=== PATIENT | male | born 1970 | race Caucasian/White ===

== ENCOUNTER 2019-06-29 14:26 | Emergency (ER) | payer OTHER ==
--- NOTE | 2019-06-29 14:36 | EDM.PDOC ---
ED HPI GENERAL MEDICAL PROBLEM - General Chief Complaint: Lower Extremity Injury/Pain Stated Complaint: EMS ARRIVAL Time Seen by Provider: 06/29/19 14:34 Source of Information: Reports: Patient History Limitations: Reports: No Limitations - History of Present Illness INITIAL COMMENTS - FREE TEXT/NARRATIVE: HISTORY AND PHYSICAL: History of present illness: Patient is a 49 year old male who presents to the ED with c/o right left pain. Patient states he was standing on his running board of his pick-up truck with his "leg gave out" causing him to fall to the ground. He has a history of 12 previous fractures/surgeries involving his right femur (dating back to 1998). He states his very last surgery, "they took all the hardware out". He is concerned he re-fractured his femur. He denies hitting his head or having any LOC. Patient denies any fever, chills, headache, change in vision, syncope or near syncope. Denies any chest pain, back pain, shortness of breath or cough. Denies any abdominal pain, nausea, vomiting, diarrhea, constipation or dysuria. Has not noted any blood in urine or stool. Patient has been eating and drinking appropriately. Review of systems: As per history of present illness and below otherwise all systems reviewed and negative. Past medical history: As per history of present illness and as reviewed below otherwise noncontributory. Surgical history: As per history of present illness and as reviewed below otherwise noncontributory. Social history: See social history for further information Family history: As per history of present illness and as reviewed below otherwise noncontributory. Physical exam: General: Well developed and well nourished 49 year old male. A&O x 3. Nontoxic appearing and in no acute distress. VSS. HEENT: Atraumatic, normocephalic, pupils equal and reactive bilaterally, negative for conjunctival pallor or scleral icterus, mucous membranes moist, TMs normal bilaterally, throat clear, neck supple, nontender, trachea midline. No drooling or trismus noted. No meningeal signs. No hot potato voice noted. Lungs: Clear to auscultation, breath sounds equal bilaterally, chest nontender. Heart: S1S2, regular rate and rhythm without overt murmur Abdomen: Soft, nondistended, nontender. Negative for masses or hepatosplenomegaly. Negative for costovertebral tenderness. Pelvis: Stable nontender. Skin: Healed scars to right thigh. Otherwise skin is intact, warm, dry. No lesions or rashes noted. Extremities: Pain to right lateral thigh from patella to hip, SEE SKIN. He moves all extremities per self without difficulty or deficits, negative for cords or calf pain. +CMS. Strong pedal pulses bilaterally. Neurovascular unremarkable. Neuro: Awake, alert, oriented. Cranial nerves II through XII unremarkable. Cerebellum unremarkable. Motor and sensory unremarkable throughout. Exam nonfocal. Notes: X-ray shows a transverse acute/subacute femur fracture. 1530: Dr Vázquez was consulted on this case, he is currently in surgery, would like this patient held in the ED until he is able to see patient. 1630: Dr Vázquez is here with patient. Would like him transferred to [facility]. Diagnostics: Pelvis, X-ray right femur Therapeutics: Tara Patterson LR Impression: Femur Fracture, Right Fall Plan: Transferred to [facility] per Dr Vázquez Definitive disposition and diagnosis as appropriate pending reevaluation and review of above. Onset: Today Right Thigh Pain Score (Numeric/FACES): 2 - Related Data Allergies Allergy/AdvReac Type Severity Reaction Status Date / Time morphine Allergy Hallucinati Verified 06/29/19 14:30 ons Home Meds: Home Meds Gemfibrozil 600 mg PO BID 06/29/19 [History] Lisinopril 20 mg PO DAILY 06/29/19 [History] Zonisamide 50 mg PO BEDTIME 06/29/19 [History] atorvaSTATin [Lipitor] 10 mg PO DAILY 06/29/19 [History] busPIRone HCl [Buspirone HCl] 30 mg PO BID 06/29/19 [History] Review of Systems - Review of Systems Review Of Systems: Comprehensive ROS is negative, except as noted in HPI. ED EXAM, GENERAL - Physical Exam Exam: See Below (See dictation) Course - Vital Signs Last Recorded V/S: Last Vital Signs Temp 97.5 F 06/29/19 14:33 Pulse 100 06/29/19 14:33 Resp 20 06/29/19 14:33 BP 179/111 H 06/29/19 14:42 Pulse Ox 99 06/29/19 14:33 - Orders/Labs/Meds Orders: Active Orders 24 hr Category Date Time Status Lactated Ringers [Ringers, Lactated] 1,000 ml Med 06/29/19 14:45 Active IV ASDIRECTED Medication Orders Lactated Ringer's (Ringers, Lactated) 1,000 mls @ 150 mls/hr IV ASDIRECTED KANDICE Last Admin: 06/29/19 14:49 Dose: 150 mls/hr Meds: Medications Generic Name Dose Route Start Last Admin Trade Name Freq PRN Reason Stop Dose Admin Lactated Ringer's 1,000 mls @ 150 mls/hr 06/29/19 14:45 06/29/19 14:49 Ringers, Lactated IV 150 mls/hr ASDIRECTED KANDICE Administration Discontinued Medications Generic Name Dose Route Start Last Admin Trade Name Freq PRN Reason Stop Dose Admin Hydromorphone HCl 1 mg 06/29/19 14:39 06/29/19 14:49 Dilaudid IVPUSH 06/29/19 14:40 1 mg ONETIME ONE Administration Ondansetron HCl 4 mg 06/29/19 14:39 06/29/19 14:49 Zofran IVPUSH 06/29/19 14:40 4 mg ONETIME ONE Administration Departure - Departure Time of Disposition: 16:30 Disposition: Home, Self-Care 01 Clinical Impression: Femur fracture, right Qualifiers: Encounter type: initial encounter Femur location: shaft Fracture type: closed Fracture morphology: transverse Fracture alignment: nondisplaced Qualified Code( s): S72.324A - Nondisplaced transverse fracture of shaft of right femur, initial encounter for closed fracture Fall Qualifiers: Encounter type: initial encounter Qualified Code(s): W19.XXXA - Unspecified fall, initial encounter - Discharge Information Referrals: PCP,Unobtain [Primary Care Provider] - Forms: ED Department Discharge Sepsis Event Note - Focused Exam Vital Signs: Vital Signs Temp Pulse Resp BP Pulse Ox 06/29/19 14:42 179/111 H 06/29/19 14:33 97.5 F 100 20 99 Date Exam was Performed: 06/29/19 Time Exam was Performed: 16:35 - My Orders Last 24 Hours: My Active Orders 06/29/19 14:45 Lactated Ringers [Ringers, Lactated] 1,000 ml IV ASDIRECTED - Assessment/Plan Last 24 Hours: My Active Orders 06/29/19 14:45 Lactated Ringers [Ringers, Lactated] 1,000 ml IV ASDIRECTED
[2019-06-29] MEDS: HYDROmorphone 2 MG/ML Syringe IVPUSH ONE (14:49)
[2019-06-29] MEDS: Ondansetron 4 MG/2 ML SDV IVPUSH ONE (14:49)
[2019-06-29] MEDS: Lactated Ringers 1,000 ML IV SCH (14:49)
--- NOTE | 2019-06-29 16:10 | CR ---
Indication: Injury and pain Technique: Pelvis AP 1 views Comparison: None Findings/Impression: Bones: Chronic fracture deformity is present in the proximal right femur. No acute fracture and no malalignment. Joint spaces: No significant degenerative changes. Soft tissues: Unremarkable. Dictated by Dank Gonzalez MD @ Jun 29 2019 4:04PM Signed by Dr. Dank Gonzalez @ Jun 29 2019 4:09PM
--- NOTE | 2019-06-29 16:10 | CR ---
Indication: Injury and pain Technique: Right femur 4 views Comparison: None Findings/Impression: Bones: Transverse nondisplaced fracture is present in the mid shaft of the right femur, this appears acute or subacute. No other acute fracture evident. Chronic fracture deformities are present. Bone alignment is normal. Multiple surgical wires are present. Joint spaces: Unremarkable. Soft tissues: Unremarkable. Dictated by Dank Gonzalez MD @ Jun 29 2019 4:03PM Signed by Dr. Dank Gonzalez @ Jun 29 2019 4:08PM
[2019-06-29] MEDS: HYDROmorphone 1 MG/ML Syringe IVPUSH ONE (17:13)
--- NOTE | 2019-06-29 17:18 | PCM.SN ---
- Free Text/Narrative Note: Ortho Note Asked to se 49 yo male with right femoral shaft fracture Patient has had 12 previous surgeries on his right femur Abnormal femoral anatomy Called [facility] in [place] for transfer because of fracture complexity with 12 previous surgeries Accept[address] by Dr. Salguero (Hospitalist) for transfer ER arranging transport
[2019-06-29] MEDS: HYDROmorphone 1 MG/ML Syringe ONE (18:37)
== END 2019-06-29 18:55 ==
LOC: MW.ED 14:26
DX: S72.324A Nondisplaced transverse fracture of shaft of right femur, initial encounter for closed fracture (principal); Z88.5 Allergy status to narcotic agent; Z79.899 Other long term (current) drug therapy; W18.31XA Fall on same level due to stepping on an object, initial encounter; Y92.812 Truck as the place of occurrence of the external cause
CPT/HCPCS: 72170; 73552; 96361; 96374; 96375; 96376; 99285; J1170; J2405; J7120; 99284

== ENCOUNTER 2019-07-10 16:59 | Emergency (ER) | payer OTHER ==
--- NOTE | 2019-07-10 17:39 | EDM.PDOC ---
ED HPI GENERAL MEDICAL PROBLEM - General Chief Complaint: Lower Extremity Injury/Pain Stated Complaint: NON STOP BLEEDING OF WOUND Time Seen by Provider: 07/10/19 17:37 Source of Information: Reports: Patient History Limitations: Reports: No Limitations - History of Present Illness INITIAL COMMENTS - FREE TEXT/NARRATIVE: HISTORY AND PHYSICAL: History of present illness: Patient is a 49-year-old male presents to the ED with complaint of bleeding incision. Patient had surgery on his right femur 2 weeks ago. He states this morning he started having bleeding at the incision site. Patient states he has changed the dressing 3 times today. He is on anticoagulants. He denies fevers, chills, purulent drainage. He has no other complaints at this time. He has follow up with primary care provider in 2 weeks. Review of systems: As per history of present illness and below otherwise all systems reviewed and negative. Past medical history: As per history of present illness and as reviewed below otherwise noncontributory. Surgical history: As per history of present illness and as reviewed below otherwise noncontributory. Social history: No reported history of drug or alcohol abuse. Family history: As per history of present illness and as reviewed below otherwise noncontributory. Physical exam: General: Patient sitting comfortably in no acute distress and nontoxic appearing HEENT: Atraumatic, normocephalic, pupils reactive, negative for conjunctival pallor or scleral icterus, mucous membranes moist, throat clear, neck supple, nontender, trachea midline. No meningeal signs. Lungs: Clear to auscultation, breath sounds equal bilaterally, chest nontender. Heart: S1S2, regular, negative for clicks, rubs, or overt murmur. Abdomen: Soft, nondistended, nontender. Negative for masses or hepatosplenomegaly. Negative for costovertebral tenderness. No rigidity, rebound , guarding. Pelvis: Stable nontender. Genitourinary: Deferred. Rectal: Deferred. Extremities: Incision to the right medial thigh and hip well healing with sunil in place. There is no erythema, warmth, purulent drainage. There is evidence of recent bleeding to the bottom portion of the incision. Atraumatic, negative for cords or calf pain. Neurovascular unremarkable. Neuro: Awake, alert, oriented. Cranial nerves II through XII unremarkable. Cerebellum unremarkable. Motor and sensory unremarkable throughout. Exam nonfocal. Notes: Diagnostics: none Therapeutics: none Prescriptions: none Impression: Wound check Definitive disposition and diagnosis as appropriate pending reevaluation and review of above. Right Leg Pain Score (Numeric/FACES): 7 - Related Data Allergies Allergy/AdvReac Type Severity Reaction Status Date / Time acetaminophen [From Vicodin] Allergy Agitation Verified 07/10/19 17:14 hydrocodone [From Vicodin] Allergy Agitation Verified 07/10/19 17:14 morphine Allergy Hallucinati Verified 07/10/19 17:14 ons Home Meds: Home Meds Gemfibrozil 600 mg PO BID 06/29/19 [History] Zonisamide 50 mg PO BEDTIME 06/29/19 [History] atorvaSTATin [Lipitor] 10 mg PO DAILY 06/29/19 [History] busPIRone HCl [Buspirone HCl] 30 mg PO BID 06/29/19 [History] lisinopriL [Lisinopril] 20 mg PO DAILY 06/29/19 [History] Past Medical History Cardiovascular History: Reports: Hypertension - Infectious Disease History Infectious Disease History: Reports: Chicken Pox, Measles, Mumps - Past Surgical History HEENT Surgical History: Reports: Tonsillectomy Neurological Surgical History: Reports: Other (See Below) Other Neurological Surgeries/Procedures: dropped 30ft as an has head skull and brain surgery Musculoskeletal Surgical History: Reports: Other (See Below) Other Musculoskeletal Surgeries/Procedures:: femur surgery x12. ganglion cyst left wrist Dermatological Surgical History: Reports: Skin Graft Social & Family History - Family History Family Medical History: Noncontributory - Caffeine Use Caffeine Use: Reports: Coffee, Energy Drinks, Soda, Tea - Recreational Drug Use Recreational Drug Use: No Review of Systems - Review of Systems Review Of Systems: Comprehensive ROS is negative, except as noted in HPI. ED EXAM, GENERAL - Physical Exam Exam: See Below (see dictation) Course - Vital Signs Last Recorded V/S: Last Vital Signs Temp 97.4 F 07/10/19 17:17 Pulse 93 07/10/19 17:17 Resp 17 07/10/19 17:17 BP 116/81 07/10/19 17:17 Pulse Ox 98 07/10/19 17:17 Departure - Departure Time of Disposition: 17:38 Disposition: Home, Self-Care 01 Condition: Good Clinical Impression: Encounter for wound re-check - Discharge Information Instructions: Wound Care, Adult Referrals: PCP,None [Primary Care Provider] - Forms: ED Department Discharge Additional Instructions: The following information is given to patients seen in the emergency department who are being discharged to home. This information is to outline your options for follow-up care. We provide all patients seen in our emergency department with a follow-up referral. The need for follow-up, as well as the timing and circumstances, are variable depending upon the specifics of your emergency department visit. If you don't have a primary care physician on staff, we will provide you with a referral. We always advise you to contact your personal physician following an emergency department visit to inform them of the circumstance of the visit and for follow-up with them and/or the need for any referrals to a consulting specialist. The emergency department will also refer you to a specialist when appropriate. This referral assures that you have the opportunity for follow-up care with a specialist. All of these measure are taken in an effort to provide you with optimal care, which includes your follow-up. Under all circumstances we always encourage you to contact your private physician who remains a resource for coordinating your care. When calling for follow-up care, please make the office aware that this follow-up is from your recent emergency room visit. If for any reason you are refused follow-up, please contact the [facility] Emergency Department at and asked to speak to the emergency department charge nurse. [facility] [address] [place] [id number] [id number] Follow up with primary care provider and orthopedics Return to ED as needed as discussed Sepsis Event Note - Evaluation Sepsis Screening Result: No Definite Risk - Focused Exam Vital Signs: Vital Signs Temp Pulse Resp BP Pulse Ox 07/10/19 17:17 97.4 F 93 17 116/81 98 Date Exam was Performed: 07/10/19 Time Exam was Performed: 17:58
== END 2019-07-10 18:03 | disposition home or self-care (01) ==
LOC: MW.ED 16:59
DX: Z47.89 Encounter for other orthopedic aftercare (principal); I10 Essential (primary) hypertension; Z88.8 Allergy status to other drugs, medicaments and biological substances; Z88.5 Allergy status to narcotic agent; Z79.899 Other long term (current) drug therapy; Z79.01 Long term (current) use of anticoagulants
CPT/HCPCS: 99282

== ENCOUNTER 2020-10-15 12:33 | Emergency (ER) | payer BC ==
--- NOTE | 2020-10-15 13:14 | EDM.PDOC ---
ED HPI GENERAL MEDICAL PROBLEM - General Chief Complaint: Lower Extremity Injury/Pain Stated Complaint: fell on right leg post surgery Time Seen by Provider: 10/15/20 13:00 - History of Present Illness INITIAL COMMENTS - FREE TEXT/NARRATIVE: 50-year-old male history of hypertension presents after a fall. Patient is supposed to be nonweightbearing on his right lower extremity after having surgery in his right hip that involved bone graft from his right fibula. Last night towards the bottom of the stairs he slipped and fell tumbling down the stairs. He presents now with recurrent right hip pain as well as pain in the right lateral knee fibula. No bleeding or wound dehiscence reported pain in the fibular area worsens with eversion of the right ankle. right knee to toes Pain Score (Numeric/FACES): 3 - Related Data Allergies Allergy/AdvReac Type Severity Reaction Status Date / Time acetaminophen [From Vicodin] Allergy Agitation Verified 10/15/20 13:07 hydrocodone [From Vicodin] Allergy Agitation Verified 10/15/20 13:07 morphine Allergy Hallucinati Verified 10/15/20 13:07 ons Home Meds: Home Meds Zonisamide 50 mg PO BEDTIME 06/29/19 [History] atorvaSTATin [Lipitor] 10 mg PO DAILY 06/29/19 [History] busPIRone HCl [Buspirone HCl] 30 mg PO BID 06/29/19 [History] gemfibroziL [Gemfibrozil] 600 mg PO BID 06/29/19 [History] lisinopriL [Lisinopril] 20 mg PO DAILY 06/29/19 [History] Past Medical History Cardiovascular History: Reports: Hypertension Musculoskeletal History: Reports: Fracture - Infectious Disease History Infectious Disease History: Reports: Chicken Pox, Measles, Mumps - Past Surgical History HEENT Surgical History: Reports: Tonsillectomy Neurological Surgical History: Reports: Other (See Below) Other Neurological Surgeries/Procedures: dropped 30ft as an has head skull and brain surgery Musculoskeletal Surgical History: Reports: Other (See Below) Other Musculoskeletal Surgeries/Procedures:: femur surgery x13, ganglion cyst left wrist, knee surgery, hip surgery Dermatological Surgical History: Reports: Skin Graft Social & Family History - Family History Family Medical History: No Pertinent Family History - Caffeine Use Caffeine Use: Reports: Coffee, Energy Drinks, Soda, Tea ED ROS GENERAL - Review of Systems Review Of Systems: See Below Free Text/Narrative/Comment: General: No fever. Musculoskeletal: Per HPI Neurologic: No headache. ED EXAM, GENERAL - Physical Exam Exam: See Below Free Text/Narrative:: General Appearance: No acute distress, appears comfortable Skin: No rash HEENT: Normocephalic/atraumatic, sclera anicteric, mucous membranes moist Musculoskeletal: 2+ right DP pulse tenderness along the lateral malleolus tracking up the fibula as well as tenderness along the lateral joint line of the right knee when dorsiflexion splint removed patient able to range the ankle well though has pain with eversion. Neurologic: Awake, alert, no obvious deficits, moving all extremities Psychiatric: Appropriate, cooperative Course - Vital Signs Last Recorded V/S: Last Vital Signs Temp 97.5 F 10/15/20 13:02 Pulse 78 10/15/20 13:02 Resp 18 10/15/20 13:02 BP 152/98 H 10/15/20 13:02 Pulse Ox 97 10/15/20 13:02 Departure - Departure Time of Disposition: 14:57 Disposition: Home, Self-Care 01 Condition: Good Clinical Impression: Fall (on) (from) unspecified stairs and steps, initial encounter - Discharge Information *PRESCRIPTION DRUG MONITORING PROGRAM REVIEWED*: Not Applicable *COPY OF PRESCRIPTION DRUG MONITORING REPORT IN PATIENT JACLYN: Not Applicable Instructions: Fall Prevention in the Home, Adult, [id number] Forms: ED Department Discharge Additional Instructions: Your x-rays today do not show any signs of hardware disruption or new fracture. As we discussed regarding the wound on the outside of your right knee I encourage you to stop using any neomycin-containing antibiotic ointment and switch to an antibiotic ointment that contains no neomycin. I also strongly encourage you to take a picture of this and uploaded to the portal so that your surgeon can evaluate it. If you have worsening pain worsening swelling spreading redness or worsening drainage from this please call your surgeon right away or return to the ER. The following information is given to patients seen in the emergency department who are being discharged to home. This information is to outline your options for follow-up care. We provide all patients seen in our emergency department with a follow-up referral. The need for follow-up, as well as the timing and circumstances, are variable depending upon the specifics of your emergency department visit. If you don't have a primary care physician on staff, we will provide you with a referral. We always advise you to contact your personal physician following an emergency department visit to inform them of the circumstance of the visit and for follow-up with them and/or the need for any referrals to a consulting specialist. The emergency department will also refer you to a specialist when appropriate. This referral assures that you have the opportunity for follow-up care with a specialist. All of these measure are taken in an effort to provide you with optimal care, which includes your follow-up. Under all circumstances we always encourage you to contact your private physician who remains a resource for coordinating your care. When calling for follow-up care, please make the office aware that this follow-up is from your recent emergency room visit. If for any reason you are refused follow-up, please contact the Emergency Department at and asked to speak to the emergency department charge nurse. Sepsis Event Note (ED) - Focused Exam Vital Signs: Vital Signs Temp Pulse Resp BP Pulse Ox 10/15/20 13:02 97.5 F 78 18 152/98 H 97 - Assessment/Plan Assessment:: 50-year-old male presenting with right leg pain after a fall as described. Hopeful for simple soft tissue injury. However, x-rays to evaluate for new fracture and hardware disruption have been ordered. 1455: Imaging is without sign of hardware disruption or acute fracture. On evaluation of all of the surgical incisions they are all clean dry intact and well-healed with 1 exception there is a wound on the most lateral aspect of the knee approximately 1 cm that was the site of her former drain. Patient reports this was healed but approximately 1 week ago there was a small blood blister which formed and since then it has been draining. They have been using a generic neomycin on the area. Immediately surrounding this there is a dark red nontender erythema. There is no purulence there is a very minimal serous drainage. The defect appears to be very superficial and I see no wound dehiscence. The surrounding erythema correlates very tightly with the area where the ointment has been applied and I think this may represent a neomycin allergy. I encouraged the patient to switch to a different antibiotic ointment. I also strongly encourage the patient to take a picture of this and to uploaded into the [facility] portal so that his surgeon can evaluate it. Patient has no fever there is no tenderness there is no warmth I do not think it represents a wound infection at this time. Patient understands this plan and comfortable with discharge with follow-up.
--- NOTE | 2020-10-15 14:31 | CR ---
Indication: Fell down stairs last night Technique: Four views of the right knee Comparison: X-rays 10/12/2020 Findings: Intramedullary ethan screw fixation through distal femur which is partially seen. No acute fractures are seen. Postsurgical resection of the distal fibula. No large effusion. Dictated by Yi Dietrich MD @ Oct 15 2020 2:29PM Signed by Dr. Yi Dietrich @ Oct 15 2020 2:31PM
--- NOTE | 2020-10-15 14:31 | CR ---
Indication: Fall status post surgery 6 weeks ago. Technique: Two-views of the right hip Comparison: X-rays 09/14/2020 Findings: Postoperative changes of open reduction internal fixation of a femoral fracture with intramedullary ethan and screws. No acute osseous findings when compared to the prior x-ray from the . The hardware appears intact. The fracture line is radiolucent and unchanged. Fractured cerclage wires again seen. Dictated by Yi Dietrich MD @ Oct 15 2020 2:23PM Signed by Dr. Yi Dietrich @ Oct 15 2020 2:29PM
--- NOTE | 2020-10-15 14:35 | CR ---
Indication: Fell Technique: Two-views of the right tibia-fibula. Comparison: X-rays 10/12/2020 Findings: Normal alignment. Partial resection of the fibula. No acute fractures or acute osseous abnormalities. Soft tissue sunil. Dictated by Yi Dietrich MD @ Oct 15 2020 2:31PM Signed by Dr. Yi Dietrich @ Oct 15 2020 2:33PM
== END 2020-10-15 15:21 | disposition home or self-care (01) ==
LOC: MW.ED 12:33
DX: M25.551 Pain in right hip (principal); M25.561 Pain in right knee; I10 Essential (primary) hypertension; Z88.6 Allergy status to analgesic agent; Z88.5 Allergy status to narcotic agent; Z79.899 Other long term (current) drug therapy; W10.9XXA Fall (on) (from) unspecified stairs and steps, initial encounter
CPT/HCPCS: 73502-26-RT; 73502-RT; 73562-26-RT; 73562-RT; 73590-26-RT; 73590-RT; 99283

== ENCOUNTER 2020-10-27 16:48 | Emergency (ER) | payer BC ==
--- NOTE | 2020-10-27 17:04 | EDM.PDOC ---
ED HPI GENERAL MEDICAL PROBLEM - General Stated Complaint: POSSIBLE ULTRA SOUND, DOCTOR REFERRAL Time Seen by Provider: 10/27/20 17:02 Source of Information: Reports: Patient History Limitations: Reports: No Limitations - History of Present Illness INITIAL COMMENTS - FREE TEXT/NARRATIVE: 50-year-old male past medical history hypertension, history of right lower extremity surgery in August of this year with bone graft from his right fibula to his right hip presents for pain and swelling in the right lower extremity. Patient was sent by his physician for an ultrasound to rule out a deep venous thrombosis. Patient notes that he has had pain in the extremity ever since his operation. He thinks it is phantom limb pain. He had a bone grafted from his right fibula to his right hip. The pain has been getting worse over the last couple of days. He has been on Percocet for the pain. He denies chest pain or shortness of breath. R leg Pain Score (Numeric/FACES): 5 - Related Data Allergies Allergy/AdvReac Type Severity Reaction Status Date / Time acetaminophen [From Vicodin] Allergy Agitation Verified 10/27/20 18:24 hydrocodone [From Vicodin] Allergy Agitation Verified 10/27/20 18:24 morphine Allergy Hallucinati Verified 10/27/20 18:24 ons Home Meds: Home Meds Zonisamide 50 mg PO BEDTIME 06/29/19 [History] atorvaSTATin [Lipitor] 10 mg PO DAILY 06/29/19 [History] busPIRone HCl [Buspirone HCl] 30 mg PO BID 06/29/19 [History] gemfibroziL [Gemfibrozil] 600 mg PO BID 06/29/19 [History] lisinopriL [Lisinopril] 20 mg PO DAILY 06/29/19 [History] Gabapentin [Neurontin] 600 mg PO BID 14 Days #28 cap 10/27/20 [Rx] Past Medical History Cardiovascular History: Reports: High Cholesterol, Hypertension Musculoskeletal History: Reports: Fracture - Infectious Disease History Infectious Disease History: Reports: Chicken Pox, Measles, Mumps - Past Surgical History HEENT Surgical History: Reports: Tonsillectomy Neurological Surgical History: Reports: Other (See Below) Other Neurological Surgeries/Procedures: dropped 30ft as an infant has head skull and brain surgery Musculoskeletal Surgical History: Reports: Other (See Below) Other Musculoskeletal Surgeries/Procedures:: femur surgery x13, ganglion cyst left wrist, knee surgery, hip surgery Dermatological Surgical History: Reports: Skin Graft Social & Family History - Family History Family Medical History: No Pertinent Family History - Caffeine Use Caffeine Use: Reports: Coffee, Energy Drinks, Soda, Tea ED ROS GENERAL - Review of Systems Review Of Systems: Comprehensive ROS is negative, except as noted in HPI. ED EXAM, GENERAL - Physical Exam Exam: See Below Exam Limited By: No Limitations General Appearance: Alert, WD/WN, No Apparent Distress Ears: Hearing Grossly Normal Throat/Mouth: Normal Oropharynx, Normal Voice Head: Atraumatic, Normocephalic Neck: Normal Inspection Respiratory/Chest: No Respiratory Distress, No Accessory Muscle Use Cardiovascular: Normal Peripheral Pulses, Regular Rate, Rhythm Extremities: Normal Inspection, Other (The right lower extremity is grossly symmetric in size to the left, there is some calf tenderness to palpation, there is no erythema or edema) Neurological: Alert Psychiatric: Normal Affect, Normal Mood Skin Exam: Warm, Dry, Intact, Normal Color Course - Vital Signs Last Recorded V/S: Last Vital Signs Temp 97.5 F 10/27/20 18:14 Pulse 77 10/27/20 18:14 Resp 17 10/27/20 18:14 BP 143/101 H 10/27/20 18:14 Pulse Ox 97 10/27/20 18:14 - Orders/Labs/Meds Meds: Medications Discontinued Medications Generic Name Dose Route Start Last Admin Trade Name Alphonse PRN Reason Stop Dose Admin Gabapentin 600 mg 10/27/20 18:32 Gabapentin 300 Mg Cap PO 10/27/20 18:33 ONETIME ONE - Re-Assessments/Exams Free Text/Narrative Re-Assessment/Exam: 10/27/20 18:34 Ultrasonography of the right lower extremity does not reveal any evidence of deep venous thrombosis. Will treat patient's pain and recommend that he follow- up with his surgeon for more definitive diagnosis. Departure - Departure Time of Disposition: 18:34 Disposition: Home, Self-Care 01 Condition: Good Clinical Impression: Leg pain Qualifiers: Laterality: right Qualified Code(s): M79.604 - Pain in right leg - Discharge Information Prescriptions: Gabapentin [Neurontin] 600 mg PO BID 14 Days #28 cap Instructions: Crutch Use, Adult, [id number] Referrals: Bell Ha NP [Primary Care Provider] - Additional Instructions: The following information is given to patients seen in the emergency department who are being discharged to home. This information is to outline your options for follow-up care. We provide all patients seen in our emergency department with a follow-up referral. The need for follow-up, as well as the timing and circumstances, are variable depending upon the specifics of your emergency department visit. If you don't have a primary care physician on staff, we will provide you with a referral. We always advise you to contact your personal physician following an emergency department visit to inform them of the circumstance of the visit and for follow-up with them and/or the need for any referrals to a consulting specialist. The emergency department will also refer you to a specialist when appropriate. This referral assures that you have the opportunity for follow-up care with a specialist. All of these measure are taken in an effort to provide you with optimal care, which includes your follow-up. Under all circumstances we always encourage you to contact your private physician who remains a resource for coordinating your care. When calling for follow-up care, please make the office aware that this follow-up is from your recent emergency room visit. If for any reason you are refused follow-up, please contact the [facility] Emergency Department at and asked to speak to the emergency department charge nurse. Please follow up with your primary care physician. If you do not have a primary care physician, see below: [facility] [address] [place] [id number] [facility] [address] [place] [address] [facility] [address] [place] [id number] Sepsis Event Note (ED) - Focused Exam Vital Signs: Vital Signs Temp Pulse Resp BP Pulse Ox 10/27/20 18:14 97.5 F 77 17 143/101 H 97
--- NOTE | 2020-10-27 17:56 | US ---
INDICATION: rt lower ext pain,swelling, recent surgery TECHNIQUE: Ultrasound venous duplex right lower extremity. COMPARISON: None. FINDINGS: The right common femoral, superficial femoral, deep femoral, popliteal, posterior tibial, and greater saphenous veins are fully compressible with normal waveforms. IMPRESSION: Normal ultrasound of the right lower extremity veins. Dictated by: Marcos Evangelista MD @ 10/27/2020 17:53:43 (Electronically Signed)
[2020-10-27] MEDS ORDERED: Gabapentin 300 MG Cap PO ONE (18:32)
== END 2020-10-27 19:05 | disposition home or self-care (01) ==
LOC: MW.ED 16:48
DX: M79.661 Pain in right lower leg (principal); I10 Essential (primary) hypertension; E78.00 Pure hypercholesterolemia, unspecified; Z79.899 Other long term (current) drug therapy; Z88.6 Allergy status to analgesic agent; Z88.5 Allergy status to narcotic agent
CPT/HCPCS: 93971; 99283; A9270

== ENCOUNTER 2021-04-25 01:30 | Emergency (ER) | payer BC ==
[2021-04-25] MEDS ORDERED: Ondansetron 4 MG Tab.DIS ONE ×2 (03:57)
[2021-04-25] MEDS ORDERED: Famotidine 20 MG Tab ONE ×2 (05:10→05:11)
[2021-04-25] MEDS ORDERED: Metoclopramide 10 MG/2 ML SDV ONE (05:11)
[2021-04-25] MEDS ORDERED: Metoclopramide Oral Soln 10 MG/10 ML UD Cup ONE (05:11)
[2021-04-25] MEDS ORDERED: Iopamidol 755 MG/ML 500 ML Multipack Bottle IVPUSH STA (07:05)
[2021-04-25 07:07] LABS: BLOOD UREA NITROGEN,BUN 20 mg/dL (7.0-18.0); CARBON DIOXIDE,CO2 25.6 mmol/L (21.0-32.0); CHLORIDE,CL 102 mmol/L (98-107); GLUCOSE RANDOM 127 mg/dL (74-106); SODIUM,NA 138 mmol/L (136-148)
--- NOTE | 2021-04-25 07:35 | CT ---
INDICATION: Abdominal pain, nausea/vomiting. TECHNIQUE: CT of the abdomen and pelvis with 100 cc Isovue 370 IV contrast. Coronal and sagittal reconstructions. COMPARISON: None. FINDINGS: The liver is enlarged measuring 19 cm in length. Diffuse hepatic steatosis. The gallbladder, spleen, pancreas, and adrenal glands are negative. No biliary dilation. Portal veins are patent. Symmetric enhancement of the kidneys. Multifocal right renal cortical scarring. No hydronephrosis or ureteral dilation. No obstructing urinary calculi. The bladder is normal in appearance. Enlarged prostate gland. No bowel dilation. Colonic diverticulosis without evidence of diverticulitis. There is fluid throughout the colon which can be seen with diarrhea. No significant wall thickening. Negative appendix. No intraperitoneal free air or fluid. Aortoiliac vascular calcifications. Few mildly prominent blas hepatis and bilateral external iliac chain lymph nodes are likely reactive. No lymphadenopathy by size criteria. Mild degenerative changes of the spine. Right convex lumbar curve. L3 limbus vertebral body. Schmorl`s node of the superior endplate of L3. Old fracture deformity of the right femur with hardware in place. Postoperative or posttraumatic deformity of the right iliac crest. Small sclerotic lesion in the left femoral head most likely represents a bone island. The lung bases are clear. IMPRESSION: 1. Fluid throughout the colon which can be seen with diarrhea. No significant wall thickening. No evidence of bowel obstruction. 2. Mild hepatomegaly with diffuse hepatic steatosis. 3. Enlarged prostate gland. Please note that all CT scans at this facility use dose modulation, iterative reconstruction, and/or weight-based dosing when appropriate to reduce radiation dose to as low as reasonably achievable. Dictated by Kateryna Edwards MD @ 04/25/2021 7:33:22 AM (Electronically Signed)
--- NOTE | 2021-04-25 08:34 | EDM.PDOC ---
ED HPI GENERAL MEDICAL PROBLEM - General Chief Complaint: Gastrointestinal Problem Stated Complaint: VOMITING AND DIARRHEA Time Seen by Provider: 04/25/21 01:35 Source of Information: Reports: Patient History Limitations: Reports: No Limitations - History of Present Illness INITIAL COMMENTS - FREE TEXT/NARRATIVE: Due to downtime prior to signout, please see paper chart from Dr. Arturo Schafer Abdomen Pain Score (Numeric/FACES): 4 - Related Data Allergies Allergy/AdvReac Type Severity Reaction Status Date / Time acetaminophen [From Vicodin] Allergy Agitation Verified 04/25/21 07:36 hydrocodone [From Vicodin] Allergy Agitation Verified 04/25/21 07:36 morphine Allergy Hallucinati Verified 04/25/21 07:36 ons Home Meds: Home Meds Zonisamide 50 mg PO BEDTIME 06/29/19 [History] atorvaSTATin [Lipitor] 10 mg PO DAILY 06/29/19 [History] busPIRone HCl [Buspirone HCl] 30 mg PO BID 06/29/19 [History] gemfibroziL [Gemfibrozil] 600 mg PO BID 06/29/19 [History] lisinopriL [Lisinopril] 20 mg PO DAILY 06/29/19 [History] Gabapentin [Neurontin] 600 mg PO BID 14 Days #28 cap 10/27/20 [Rx] Ondansetron [Zofran ODT] 4 mg PO Q6H PRN #12 tab.dis 04/25/21 [Rx] Past Medical History Cardiovascular History: Reports: High Cholesterol, Hypertension Respiratory History: Reports: None Musculoskeletal History: Reports: Fracture Neurological History: Reports: None Dermatologic History: Reports: None - Infectious Disease History Infectious Disease History: Reports: Chicken Pox, Measles, Mumps - Past Surgical History HEENT Surgical History: Reports: Tonsillectomy Cardiovascular Surgical History: Reports: None Neurological Surgical History: Reports: Other (See Below) Other Neurological Surgeries/Procedures: dropped 30ft as an has head skull and brain surgery Musculoskeletal Surgical History: Reports: Other (See Below) Other Musculoskeletal Surgeries/Procedures:: femur surgery x13, ganglion cyst left wrist, knee surgery, hip surgery Dermatological Surgical History: Reports: Skin Graft Social & Family History - Family History Family Medical History: No Pertinent Family History - Tobacco Use Tobacco Use Status *Q: Never Tobacco User Second Hand Smoke Exposure: No - Caffeine Use Caffeine Use: Reports: Coffee ED ROS GENERAL - Review of Systems Review Of Systems: See Below (see dictation) ED EXAM, GENERAL - Physical Exam Exam: See Below (see dictation) Course - Vital Signs Last Recorded V/S: Last Vital Signs Temp 97.0 F 04/25/21 01:30 Pulse 50 L 04/25/21 08:19 Resp BP 120/84 04/25/21 01:30 Pulse Ox 96 04/25/21 08:19 - Orders/Labs/Meds Orders: Active Orders 24 hr Category Date Time Status Chest 1V Frontal [CR] Routine Exams 04/25/21 05:10 Taken Labs: Laboratory Tests 04/25/21 04/25/21 04/25/21 Range/Units 03:30 03:35 03:35 WBC 7.12 (4.0-11.0) K/uL RBC 5.44 (4.50-5.90) M/uL Hgb 17.3 H (13.0-17.0) g/dL Hct 50.0 (38.0-50.0) % MCV 91.9 (80.0-98.0) fL MCH 31.8 (27.0-32.0) pg MCHC 34.6 (31.0-37.0) g/dL RDW Std Deviation 42.7 (28.0-62.0) fl RDW Coeff of Zahra 13 (11.0-15.0) % Plt Count 233 (150-400) K/uL MPV 10.50 (7.40-12.00) fL Neut % (Auto) 66.1 (48.0-80.0) % Lymph % (Auto) 21.8 (16.0-40.0) % Marshall % (Auto) 9.3 (0.0-15.0) % Eos % (Auto) 2.4 (0.0-7.0) % Baso % (Auto) 0.4 (0.0-1.5) % Neut # (Auto) 4.7 (1.4-5.7) K/uL Lymph # (Auto) 1.6 (0.6-2.4) K/uL Marshall # (Auto) 0.7 (0.0-0.8) K/uL Eos # (Auto) 0.2 (0.0-0.7) K/uL Baso # (Auto) 0.0 (0.0-0.1) K/uL Nucleated RBC % 0.0 /100WBC Nucleated RBCs # 0 K/uL Sodium 138 (136-148) mmol/L Potassium 5.0 (3.5-5.1) mmol/L Chloride 102 (98-107) mmol/L Carbon Dioxide 25.6 (21.0-32.0) mmol/L BUN 20 H (7.0-18.0) mg/dL Creatinine 1.7 H (0.8-1.3) mg/dL Est Cr Clr Drug Dosing TNP Estimated GFR (MDRD) 42.5 ml/min Glucose 127 H (74-106) mg/dL Calcium 9.6 (8.5-10.1) mg/dL Total Bilirubin 0.5 (0.2-1.0) mg/dL AST 46 H (15-37) IU/L ALT 117 H (14-63) IU/L Alkaline Phosphatase 170 H (46-116) U/L Total Protein 7.5 (6.4-8.2) g/dL Albumin 4.3 (3.4-5.0) g/dL Globulin 3.2 (2.6-4.0) g/dL Albumin/Globulin Ratio 1.3 (0.9-1.6) SARS-CoV-2 RNA (NAHOMI) NEGATIVE (NEGATIVE) Meds: Medications Discontinued Medications Generic Name Dose Route Start Last Admin Trade Name Freq PRN Reason Stop Dose Admin Iopamidol 100 ml 04/25/21 07:05 04/25/21 07:05 Iopamidol 755 Mg/Ml 500 Ml Multipack Bottle IVPUSH 04/25/21 07:06 100 ml ONETIME STA Administration - Re-Assessments/Exams Free Text/Narrative Re-Assessment/Exam: 04/25/21 07:10 This patient was signed out to me from Dr. Arturo Schafer at this time. I promptly performed a detailed physical examination, my examination was performed after ED treatments were initiated by the signout provider. Patient has been under the care of the previous provider up until this point. Please see paper charting secondary to downtime prior to my signout. Patient is a well-appearing male with history of hypertension and renal insufficiency who presented with vomiting and diarrhea last night after eating shrimp fried rice. He admits to diffuse aching abdominal pain but denies fever, chest pain, cough, hematemesis or rectal bleeding. Pain is currently rated 3/10 after treatments in the ED. He was given Zofran, Pepcid, GI cocktail. 04/25/21 08:36 He is currently stable for discharge. I performed a repeat exam and did not appreciate new abnormal findings. Patient exhibits normal vital signs and has a normal gait on road test. Repeat abdominal exam performed by me demonstrates no tenderness diffusely with no rebound or guarding. I advised the patient to return to the ER for reevaluation if symptoms worsened, including fever, wo rsening pain, or any other worrisome symptoms. I instructed the patient to follow up with Dr. Kumar within 2-3 days for further assessment of his renal insufficiency. MEDICAL DECISION MAKING: I reviewed the patients past medical records, lab and radiographic findings. I discussed the case with the patient. My differential diagnosis included: Dehydration, food poisoning, gastroenteritis. CT A/P did not demonstrate by obstruction or surgical abnormalities. Repeat abdominal exam was soft with no rebound or guarding and no tenderness. His creatinine = 1.7 today which is at baseline, he mentioned that his PCP previously took him off of ibuprofen due to concerns for renal problems. I instructed him to continue hydration and to follow-up for serial trending for his kidney function. Given strict return precautions for worsening abdominal pain, nausea, vomiting, fever, diarrhea. Departure - Departure Time of Disposition: 08:38 Disposition: Home, Self-Care 01 Condition: Good Clinical Impression: Gastroenteritis - Discharge Information *PRESCRIPTION DRUG MONITORING PROGRAM REVIEWED*: Not Applicable *COPY OF PRESCRIPTION DRUG MONITORING REPORT IN PATIENT JACLYN: Not Applicable Prescriptions: Ondansetron [Zofran ODT] 4 mg PO Q6H PRN #12 tab.dis PRN Reason: Vomiting Instructions: Food Poisoning, [id number], Food Choices to Help Relieve Diarrhea, Adult Referrals: Aida Kumar NP [Primary Care Provider] - 2 Days Additional Instructions: The need for follow-up, as well as the timing and circumstances, are variable depending upon the specifics of your emergency department visit. If you don't have a primary care physician on staff, we will provide you with a referral. We always advise you to contact your personal physician following an emergency department visit to inform them of the circumstance of the visit and for follow-up with them and/or the need for any referrals to a consulting specialist. The emergency department will also refer you to a specialist when appropriate. This referral assures that you have the opportunity for follow-up care with a specialist. All of these measure are taken in an effort to provide you with optimal care, which includes your follow-up. Under all circumstances we always encourage you to contact your private physician who remains a resource for coordinating your care. When calling for follow-up care, please make the office aware that this follow-up is from your recent emergency room visit. If for any reason you are refused follow-up, please contact the [facility] Emergency Department at and asked to speak to the emergency department charge nurse. If you do not have a primary care doctor, please follow up with the clinics below within 3-5 days. [facility] [address] [place] [id number] [facility] [address] [place] [id number] Sepsis Event Note (ED) - Focused Exam Vital Signs: Vital Signs Temp Pulse BP Pulse Ox 04/25/21 08:19 50 L 96 04/25/21 01:30 97.0 F 58 L 120/84 94 L
--- NOTE | 2021-04-25 11:21 | CR ---
EXAM DATE: 04/25/21 PATIENT'S AGE: 50 Patient: MOOKIE FARR Facility: [facility] Site : 1970 Study: XRay-Chest -04/25/2021 5:29:53 AM Ordering Physician: CELIO ROBERTS MD Final Report: INDICATION: Cough and shortness of breath. TECHNIQUE: Chest 1 view. COMPARISON: None FINDINGS: Cardiovascular and mediastinum: Heart size and vasculature are normal in caliber and appearance. Mediastinum is within normal limits. Lungs and pleural space: Lungs are clear. No sign of infiltrate or mass. No sign of pleural effusion. No pneumothorax. Bones and soft tissues: No significant findings. IMPRESSION: Lungs are clear. Dictated by Chan Moore MD @ 04/25/2021 5:49:49 AM Signed by: Chan Moore MD @04/25/2021 5:49:49 AM (Electronic Signature) Report Signed by Proxy. [facility]
== END 2021-04-25 08:56 | disposition home or self-care (01) ==
LOC: MW.ED 02:11
DX: K52.9 Noninfective gastroenteritis and colitis, unspecified (principal); E78.00 Pure hypercholesterolemia, unspecified; I10 Essential (primary) hypertension; Z79.899 Other long term (current) drug therapy; Z88.6 Allergy status to analgesic agent; Z88.5 Allergy status to narcotic agent; Z20.822 Contact with and (suspected) exposure to COVID-19
CPT/HCPCS: 36415; 71045; 74177; 80053; 85025; 87635; 99284; A9270; J2765; Q9967; U0002